=== PATIENT | female | born 1945 | race Caucasian/White ===

== ENCOUNTER → 2020-04-22 13:20 | Outpatient (BNVA) | payer MEDICARE, OTHER, SELFPAY | PROVIDERS: PCP Internal Medicine; Visit Provider Internal Medicine Cardiovascular Disease | DX: I20.8 Other forms of angina pectoris (principal); I50.30 Unspecified diastolic (congestive) heart failure; G62.9 Polyneuropathy, unspecified; Z79.82 Long term (current) use of aspirin; Z79.899 Other long term (current) drug therapy; Z95.0 Presence of cardiac pacemaker; Z95.2 Presence of prosthetic heart valve | CPT/HCPCS: 99212 ==

== ENCOUNTER → 2020-05-04 10:57 | Outpatient (REF) | payer MEDICARE, OTHER, SELFPAY ==
--- NOTE | 2020-05-04 11:02 | CA_ITS ---
Acquisition Time: 2020-05-04 11:25:23 Total Exercise Time: 00:02:55 Test Indications: Chest Pain Medications: ASA BUMETANIDE CETERZINE METOPROLOL POTASSIUM SIMVASTATIN Protocol: ERROL Max HR: 093 BPM 65% of Pred: 143 BPM Max BP: 154/064 mmHG Max Work Load: 4.6 METS Exercise stress ECHO pt unable to go longer then 2 min 55 sec. Pt requested to terminate the test as she was unable to walk any more d/t her legs pain and leg fatique. Pt reported to be SOB, but that was not why she wanted to terminate the test. Images taken at rest and at he end of exercise. Normotensive response to exercise. Test reviewed with Dr. Andrew. Referred By: Rene Morales Overread By: Shira Robles
== END ==
LOC: HO.CARD 10:57
PROVIDERS: Visit Provider Internal Medicine Cardiovascular Disease
DX: I20.8 Other forms of angina pectoris (principal)
CPT/HCPCS: 93350; Q9957

== ENCOUNTER 2020-05-15 14:17 | Outpatient (REF) | payer MEDICARE, OTHER, SELFPAY | END 2020-05-15 14:18 | disposition home or self-care (01) | LOC: HO.LAB 14:17 | PROVIDERS: Visit Provider Hospitalist | DX: Z13.89 Encounter for screening for other disorder (principal) | CPT/HCPCS: U0003 ==

== ENCOUNTER 2020-05-15 14:23 | Outpatient (REF) | payer MEDICARE, OTHER, SELFPAY ==
--- NOTE | 2020-05-15 14:27 | XR_ITS ---
EXAMINATION: XR CHEST CLINICAL INFORMATION: Angina pectoris COMPARISON: Chest x-ray 11/08/2018 TECHNIQUE: 2 views of the chest were obtained. FINDINGS: Pacemaker lead in right atrium and right ventricle. Status post TAVR. Surgical clips over the left side of the upper chest. The heart size is normal. The cardiac and the mediastinal contours are normal. There is no acute abnormality the chest. There are no pleural effusions. There is no pulmonary vascular congestion. No focal consolidation. XR/XR chest 2V IMPRESSION: No acute abnormality of chest.
== END 2020-05-15 14:24 | disposition home or self-care (01) ==
LOC: HO.HMGCX 14:23
PROVIDERS: PCP Internal Medicine; Visit Provider Hospitalist
DX: I20.8 Other forms of angina pectoris (principal)
CPT/HCPCS: 71046; U0003

== ENCOUNTER → 2020-06-10 09:38 | Outpatient (REF) | payer MEDICARE, OTHER, SELFPAY ==
--- NOTE | 2020-06-10 | NM_ITS ---
Lexiscan Myocardial perfusion study Indication: Coronary artery disease, history of LAD stenosis, assess for ischemia Technique: The patient was brought in for a Lexiscan perfusion study on 06/10/2020 and was injected 0.4 mg of Lexiscan intravenously. Within a minute of this injection 25 mCi of sestamibi was given intravenously. Images were obtained using the SPECT gamma camera interlaced with the gating device. Images were obtained in supine position. Resting perfusion study was performed on 06/11/2020. Patient was administered 25 mCi of sestamibi intravenously at rest. Images were then obtained in supine position. Total DLP 78mGy-cm. Images were processed with the software and compared side to side in short axis, horizontal long axis and vertical long axis views. Findings: Raw acquisition was reviewed. The stress perfusion study showed mildly reduced tracer uptake at the apex. This defect is still persisting with CT attenuation correction. The gated study shows normal LV systolic function with calculated LVEF of 75%. LV cavity is normal in size. The gated study shows normal wall thickening and contraction of segments. Resting study shows no significant perfusion abnormality. Gating at rest reveals normal wall motion with ejection fraction at 68%. The findings are consistent with mild apical reversible defect. NM/NM moe perf SPECT rest & str Impression: 1. Myocardial perfusion imaging study shows mild reversible defect at the apex that could be from ischemia. Otherwise normal myocardial perfusion. 2. Gated LVEF is 75% during stress; 68% during rest. 3. Transient ischemic dilatation not present. EKG component of the test reported separately.
--- NOTE | 2020-06-10 09:40 | CA_ITS ---
Acquisition Time: 2020-06-10 09:43:56 Total Exercise Time: 00:02:00 Test Indications: Chest Pain Medications: ASA BUMETANIDE LEVOTHYROXINE METOPROLOL PANTOPRAZOLE CERTRAZINE SIMVASTATIN POTASSIUM Protocol: LEXISCAN Max HR: 067 BPM 46% of Pred: 143 BPM Max BP: 130/064 mmHG Max Work Load: 1.0 METS Pharmacological stress test using Lexiscan while sitting. Pt reports chest thightness and headache. Sx reversed with Aminophyline 75 mg IV. EKG with LBBB with V paced, non-diagnostic for ischemia. Nuclear images to follow. No rmotensive response to test. Test reviewed with Dr. Schmid Patient was feeling lightheaded blood sugar 86. Patient was given Pepsi and crackers. Symptoms improved Referred By: Margaret Rosales Overread By: Shira Robles
[2020-06-10 10:28] LABS: Glucose, Whole Blood 86 mg/dL (60-115)
== END ==
LOC: HO.CARD 09:38
PROVIDERS: PCP Internal Medicine; Visit Provider Nurse Practitioner Family
DX: R06.02 Shortness of breath (principal); I25.10 Atherosclerotic heart disease of native coronary artery without angina pectoris
CPT/HCPCS: 78452; 82947; 93017; A9500; J0280; J2785

== ENCOUNTER 2020-06-16 16:43 | Outpatient (REF) | payer MEDICARE, OTHER, SELFPAY ==
[2020-06-17 12:49] LABS: Influenza A PCR NEGATIVE (Negative); Influenza B PCR NEGATIVE (Negative); Resp Syncy Virus RNA Qual PCR NEGATIVE (Negative); SARS COV2 PCR INHOUSE NEGATIVE (Negative)
== END 2020-06-16 16:44 | disposition home or self-care (01) ==
LOC: HO.LAB 16:43
PROVIDERS: Visit Provider Nurse Practitioner Family
DX: Z20.822 Contact with and (suspected) exposure to COVID-19 (principal)
CPT/HCPCS: 0241U; 36415

== ENCOUNTER 2020-07-03 09:42 | Outpatient (REF) | payer MEDICARE, OTHER, SELFPAY ==
[2020-07-03 11:24] LABS: Hematocrit 42.2 % (37-47); Hemoglobin 13.5 g/dl (12.0-16.0)
[2020-07-03 11:25] LABS: Estimated Average Glucose 131 mg/dL; Hemoglobin A1c % 6.2 %
[2020-07-03 11:54] LABS: Alanine Aminotransferase 20 U/L (0-31); Albumin Level 3.4 g/dL (3.5-5.0); Alkaline Phosphatase 217 U/L (39-117); Anion Gap 14 (12-20); Aspartate Amino Transferase 33 U/L (5-31); Bilirubin Direct 0.2 mg/dL (0.0-0.5); Bilirubin Total 0.7 mg/dL (0.0-1.0); Blood Urea Nitrogen 17 mg/dL (9-16); Calcium 8.5 mg/dL (8.4-10.2); Carbon Dioxide 28 mmol/L (22-29); Chloride 105 mmol/L (96-108); Estimated Glomerular Filt Rate > 60; Glucose Random 128 mg/dL (60-115); Potassium 4.7 mmol/L (3.3-5.1); Sodium 142 mmol/L (135-145); Total Protein 5.9 g/dL (6.5-8.0)
[2020-07-03 12:03] LABS: TSH reflex Free T4 2.53 mIU/mL (0.32-4.0)
[2020-07-03 12:22] LABS: Creatinine Urine 214.59 mg/dL; Microalbum/Creatinine Ratio Ur 6.9 ug/mg cr
[2020-07-04 09:02] LABS: LDL Cholesterol Direct 67 mg/dL (<100)
== END 2020-07-03 09:43 | disposition home or self-care (01) ==
LOC: HO.HMGCLDS 09:42
PROVIDERS: PCP Internal Medicine; Visit Provider Internal Medicine
DX: Z00.01 Encounter for general adult medical examination with abnormal findings (principal); E13.9 Other specified diabetes mellitus without complications; E78.5 Hyperlipidemia, unspecified; E03.9 Hypothyroidism, unspecified
CPT/HCPCS: 36415; 80048; 80076; 82043; 83036; 83721; 84443; 85014; 85018

== ENCOUNTER 2020-07-14 10:28 | Outpatient (REF) | payer MEDICARE, OTHER, SELFPAY ==
--- NOTE | ~2020-07-14 | US_ITS ---
EXAMINATION: US ABDOMEN COMPLETE CLINICAL INFORMATION: Other specified abnormal findings of blood chemistry. COMPARISON: Ultrasound abdomen complete 11/13/2018. CT abdomen and pelvis 06/10/2009. TECHNIQUE: Real-time imaging of the abdominal viscera. FINDINGS: PANCREAS: The pancreas is homogeneous in echotexture with a small anechoic cyst at the junction of head and body measuring 0.8 x 1.0 x 1.2 cm. ABDOMINAL AORTA: There is mild ectasia of the distal abdominal aorta measuring 2.8 cm in AP. INFERIOR VENA CAVA: Visualized portions are normal. LIVER: There is mild ascites in the perihepatic space. The liver contour is normal. Parenchymal echogenicity is normal. No focal hepatic lesion. There is no intrahepatic biliary duct dilatation seen. GALLBLADDER: Surgically absent. COMMON BILE DUCT: Normal in caliber measuring 1.0 cm in diameter. RIGHT KIDNEY: Normal. No hydronephrosis. No renal calculi or focal parenchymal lesions. The kidney measures 9.6 cm in maximum dimension. LEFT KIDNEY: There is an anechoic cyst in the midpole measuring 1.0 x 0.8 x 0.8 cm. No hydronephrosis or focal parenchymal lesions. The kidney measures 9.8 cm in maximum dimension. SPLEEN: A small echogenic focus is seen in the mid spleen measuring 0.7 x 0.7 x 0.8 cm likely small hemangioma. The spleen measures 11.0 cm in maximum dimension. Trace free fluid is seen in the perisplenic space. FREE FLUID: Minimal free fluid seen. US/US abdomen complete IMPRESSION: Midpole left kidney small cysts. Trace free fluid bilaterally. Suspect small hemangioma in the spleen. Mild ectasia of the distal abdominal aorta measuring 2.8 cm in AP view. Small cyst at the junction of head and body of pancreas.
--- NOTE | ~2020-07-14 | MM_ITS ---
EXAMINATION: MM SCREENING DIGITAL BREAST TOMOSYNTHESIS, BILATERAL CLINICAL INFORMATION: Screening. Asymptomatic. The lifetime risk of breast cancer based on the Tyrer-Cuzick Model is 2%. COMPARISON: Mammography: 01/23/2019, 11/22/2017, 08/01/2014 TECHNIQUE: Digital breast tomosynthesis is performed in both the craniocaudal and mediolateral oblique views along with computer-aided detection (CAD). Synthesized 2D images are generated from the tomosynthesis. FINDINGS: There are scattered areas of fibroglandular density (ACR BI-RADS breast composition Category b). There are no significant masses, abnormal calcifications, or other abnormalities. Parenchymal pattern similar to prior studies. Again, there is intramammary node right breast upper outer quadrant and scattered bilateral vascular and ductal secretory calcifications. No significant changes. MM/MM tomosynthesis screening BI IMPRESSION: No mammographic evidence of malignancy. ASSESSMENT: BI-RADS 2: Benign RECOMMENDATION: Routine annual mammography screening. This patient's information was entered into a reminder system with a target due date for their next mammogram.
== END 2020-07-14 10:29 | disposition home or self-care (01) ==
LOC: HO.HMGCX 10:28
PROVIDERS: PCP Internal Medicine; Visit Provider Internal Medicine
DX: R94.5 Abnormal results of liver function studies (principal); Z12.31 Encounter for screening mammogram for malignant neoplasm of breast
CPT/HCPCS: 76700; 77063; 77067

== ENCOUNTER → 2020-07-15 12:52 | Outpatient (BNVA) | payer MEDICARE, OTHER, SELFPAY | PROVIDERS: PCP Internal Medicine; Visit Provider Internal Medicine Cardiovascular Disease | DX: I50.32 Chronic diastolic (congestive) heart failure (principal); I20.8 Other forms of angina pectoris; R94.39 Abnormal result of other cardiovascular function study | CPT/HCPCS: 99212 ==

== ENCOUNTER 2020-07-23 08:05 | Outpatient (REF) | payer MEDICARE, OTHER, SELFPAY ==
--- NOTE | ~2020-07-23 | XR_ITS ---
EXAMINATION: CR X-RAY KNEES BILATERAL CLINICAL INFORMATION: Knee pain. COMPARISON: None TECHNIQUE: 3 views each of the bilateral knees were obtained with standing AP views. FINDINGS: Right: Mild medial femoral-tibial joint space narrowing is seen with minimal chondrocalcinosis. There is no acute fracture or dislocation. Trace suprapatellar joint fluid is seen. Moderate prepatellar soft tissue swelling is seen. Left: Mild femoral-tibial joint space narrowing is seen with mild chondrocalcinosis. There is no acute fracture or dislocation. Trace suprapatellar joint fluid is seen. There is moderate prepatellar soft tissue swelling. XR/XR knee LT 2V IMPRESSION: Mild femoral-tibial degenerative joint changes as detailed above. Possible trace supra patellar joint fluid bilaterally. Moderate prepatellar soft tissue swelling. No overt acute abnormality.
--- NOTE | ~2020-07-23 | XR_ITS ---
EXAMINATION: XR PELVIS CLINICAL INFORMATION: Hip pain COMPARISON: Bilateral hip radiographs 06/14/2018 TECHNIQUE: AP view of the pelvis. FINDINGS: There is no fracture or dislocation or destructive process. Degenerative changes are present lower lumbar spine. SI joints and pubis show no diastases. There are surgical clips inferior pelvis. There is chronic benign coarse calcification in region of bladder outlet. Again, some calcific tendinosis present in region of right hamstring. There are bilateral vascular calcifications. Left hip shows increased axial narrowing with mild subchondral sclerosis and osteophyte. The right hip has lesser medial narrowing also slightly increased since 2019. No erosive changes. There is minor bilateral greater trochanteric spurring. XR/XR pelvis 1-2V IMPRESSION: 1. 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 2. Stable calcification in region of proximal right hamstring. 3. Probable degenerative changes lower lumbar spine.
--- NOTE | ~2020-07-23 | XR_ITS ---
EXAMINATION: CR X-RAY KNEES BILATERAL CLINICAL INFORMATION: Knee pain. COMPARISON: None TECHNIQUE: 3 views each of the bilateral knees were obtained with standing AP views. FINDINGS: Right: Mild medial femoral-tibial joint space narrowing is seen with minimal chondrocalcinosis. There is no acute fracture or dislocation. Trace suprapatellar joint fluid is seen. Moderate prepatellar soft tissue swelling is seen. Left: Mild femoral-tibial joint space narrowing is seen with mild chondrocalcinosis. There is no acute fracture or dislocation. Trace suprapatellar joint fluid is seen. There is moderate prepatellar soft tissue swelling. XR/XR knee RT 2V IMPRESSION: Mild femoral-tibial degenerative joint changes as detailed above. Possible trace supra patellar joint fluid bilaterally. Moderate prepatellar soft tissue swelling. No overt acute abnormality.
--- NOTE | ~2020-07-23 | XR_ITS ---
EXAMINATION: CR X-RAY KNEES BILATERAL CLINICAL INFORMATION: Knee pain. COMPARISON: None TECHNIQUE: 3 views each of the bilateral knees were obtained with standing AP views. FINDINGS: Right: Mild medial femoral-tibial joint space narrowing is seen with minimal chondrocalcinosis. There is no acute fracture or dislocation. Trace suprapatellar joint fluid is seen. Moderate prepatellar soft tissue swelling is seen. Left: Mild femoral-tibial joint space narrowing is seen with mild chondrocalcinosis. There is no acute fracture or dislocation. Trace suprapatellar joint fluid is seen. There is moderate prepatellar soft tissue swelling. XR/XR knee standing BI IMPRESSION: Mild femoral-tibial degenerative joint changes as detailed above. Possible trace supra patellar joint fluid bilaterally. Moderate prepatellar soft tissue swelling. No overt acute abnormality.
== END 2020-07-23 08:06 | disposition home or self-care (01) ==
LOC: HO.HOSX 08:05
PROVIDERS: Visit Provider Orthopaedic Surgery
DX: M17.0 Bilateral primary osteoarthritis of knee (principal); M16.12 Unilateral primary osteoarthritis, left hip
CPT/HCPCS: 72170; 73560; 73565; 99202

== ENCOUNTER → 2020-08-12 10:58 | Outpatient (BNVA) | payer MEDICARE, OTHER, SELFPAY | PROVIDERS: PCP Internal Medicine; Visit Provider Nurse Practitioner Family | DX: M54.16 Radiculopathy, lumbar region (principal); M25.552 Pain in left hip; M25.551 Pain in right hip; G90.523 Complex regional pain syndrome I of lower limb, bilateral; Z79.899 Other long term (current) drug therapy | CPT/HCPCS: 99202 ==

== ENCOUNTER 2020-09-03 12:21 | Outpatient (REF) | payer MEDICARE, OTHER, SELFPAY ==
--- NOTE | ~2020-09-03 | MR_ITS ---
EXAMINATION: MR LUMBAR SPINE WITHOUT CONTRAST CLINICAL INFORMATION: 75-year-old with radiculopathy, lumbar region. History of surgery in the remote past. COMPARISON: 06/25/2018 MRI TECHNIQUE: MRI of the lumbar spine was obtained using routine sequences without contrast. FINDINGS: Coronal Alignment:?Normal. Sagittal Alignment:?Normal. Lumbosacral Junction:?Normal. Vertebral Bodies: Normal height. Bone Marrow: No suspicious marrow replacing process or bone marrow edema. Conus Medullaris:?Terminates at L1.?Morphology and signal is normal. Intradural Nerve Roots: Within normal limits, with fibrofatty proliferation in the filum terminale, stable in appearance. L5-S1: Disc space height is well maintained, stable in appearance with disc desiccation, with right paravertebral spondylosis unchanged. Mild diffuse disc bulging is again noted with right paramedian to lateral annular fissuring similar to the previous exam. [id number] facet hypertrophic degenerative change on the right is unchanged, with no definite neural impingement on current study. No significant canal or neural foraminal stenosis. L4-L5: Disc space height is stable from previous exam with disc desiccation consistent with disc degenerative change. There is diffuse disc bulging again noted with mild flattening of the dural sac, stable in appearance. Right hemilaminectomy defect at this level again noted with moderate bilateral facet arthropathy, right more than left, unchanged in appearance, with mild encroachment on the traversing right L5 nerve root, stable in appearance. There is also crowding of the left subarticular zone, unchanged in appearance. There is mild bilateral neural foraminal stenosis, unchanged in appearance without exiting L4 nerve root impingement. L3-L4: Disc space height is well maintained, stable in appearance with disc desiccation. There is a prominent central Schmorl's node along the inferior endplate of L3 which is progressed from previous exam. Mild spondylosis and minimal disc bulging again noted with slight flattening of the dural sac, with mild ligamentum flavum thickening or infolding and mild bilateral facet arthropathy without significant canal or neural foraminal stenosis. L2-L3: Disc space height is well maintained with disc desiccation, stable in appearance. Mild anterior marginal spondylosis is noted with minimal disc bulging asymmetric to the right and minor facet arthrosis with no significant canal or neural foraminal stenosis, unchanged in appearance. Small bilateral perineural cysts are noted at this level. L1-L2: Disc space height is well maintained, stable in appearance with disc desiccation and spondylosis, unchanged. Small central disc herniation noted superimposed on minimal disc bulging, stable in appearance with slight flattening of the central dural sac, unchanged. No significant canal or neural foraminal stenosis. Small perineural cysts on the right at T12-L1 and T11-T12 and on the left at T11-T12, unchanged in appearance. Paraspinal/Retroperitoneal: The paravertebral soft tissues are remarkable for moderate generalized diffuse muscle volume loss. On the current study, note is made of diffuse irregular thickening of the colonic wall and rectum, which are new findings suggesting the possibility of colitis. Recommend further assessment with CT of the abdomen and pelvis without and with contrast. MR/MR lumbar spine wo con IMPRESSION: 1. Multilevel mild degrees of disc bulging, as described above, largely stable in appearance with postoperative changes on the right at L4-L5, stable in appearance with multilevel bilateral facet arthropathy, unchanged. There is crowding of the subarticular zones at L4-L5 bilaterally, right more than left, unchanged in appearance. 2. Mild bilateral neural foraminal stenosis at L4-5 is stable without neural impingement. 3. Diffuse irregular thickening of the colonic wall and rectosigmoid is noted on the current study as an incidental finding. Recommend CT of the abdomen and pelvis with oral and IV contrast to further assess this. The [facility] staff will call to confirm receipt of this report with acknowledgment of the findings and recommendations.
== END 2020-09-03 12:22 | disposition home or self-care (01) ==
LOC: HO.MRI 12:21
PROVIDERS: Visit Provider Anesthesiology
DX: M54.16 Radiculopathy, lumbar region (principal)
CPT/HCPCS: 72148

== ENCOUNTER → 2020-09-11 15:30 | Outpatient (BNVA) | payer MEDICARE, OTHER, SELFPAY | PROVIDERS: PCP Internal Medicine; Visit Provider Nurse Practitioner Family | DX: M54.16 Radiculopathy, lumbar region (principal); G90.523 Complex regional pain syndrome I of lower limb, bilateral; M25.551 Pain in right hip; M25.552 Pain in left hip | CPT/HCPCS: 99212 ==

== ENCOUNTER → 2020-09-14 13:02 | Outpatient (BNVA) | payer MEDICARE, OTHER, SELFPAY | PROVIDERS: PCP Internal Medicine; Visit Provider Internal Medicine Cardiovascular Disease | DX: I50.32 Chronic diastolic (congestive) heart failure (principal); I20.8 Other forms of angina pectoris; R94.39 Abnormal result of other cardiovascular function study; Z95.0 Presence of cardiac pacemaker | CPT/HCPCS: 99212 ==

== ENCOUNTER → 2020-10-08 12:44 | Outpatient (BNVA) | payer MEDICARE, OTHER, SELFPAY | PROVIDERS: PCP Internal Medicine; Referring Provider Internal Medicine; Visit Provider Internal Medicine Cardiovascular Disease | DX: I50.32 Chronic diastolic (congestive) heart failure (principal); R94.39 Abnormal result of other cardiovascular function study | CPT/HCPCS: 99212 ==

== ENCOUNTER 2020-10-15 16:09 | Outpatient (REF) | payer MEDICARE, OTHER, SELFPAY | END 2020-10-15 16:10 | disposition home or self-care (01) | LOC: HO.LAB 16:09 | PROVIDERS: PCP Internal Medicine; Visit Provider Otolaryngology | DX: J30.89 Other allergic rhinitis (principal) | CPT/HCPCS: 36415; 82785; 86003 ==

== ENCOUNTER 2020-11-20 08:19 | Outpatient (REF) | payer MEDICARE, OTHER, SELFPAY ==
[2020-11-20 09:19] LABS: Hematocrit 38.4 % (37-47); Hemoglobin 12.4 g/dl (12.0-16.0)
[2020-11-20 09:30] LABS: Estimated Average Glucose 146 mg/dL; Hemoglobin A1c % 6.7 %
[2020-11-20 09:58] LABS: Alanine Aminotransferase 31 U/L (0-31); Albumin Level 2.9 g/dL (3.5-5.0); Alkaline Phosphatase 222 U/L (39-117); Anion Gap 9 (12-20); Aspartate Amino Transferase 43 U/L (5-31); Bilirubin Total 0.3 mg/dL (0.0-1.0); Blood Urea Nitrogen 15 mg/dL (9-16); Calcium 8.2 mg/dL (8.4-10.2); Carbon Dioxide 29 mmol/L (22-29); Chloride 110 mmol/L (96-108); Cholesterol 105 mg/dL; Estimated Glomerular Filt Rate > 60; Glucose Fasting 86 mg/dL (60-99); HDL Cholesterol 33 mg/dL; LDL Cholesterol Calculated 53 mg/dl; Potassium 4.3 mmol/L (3.3-5.1); Sodium 144 mmol/L (135-145); Total Protein 4.8 g/dL (6.5-8.0); Triglycerides 99 mg/dL
[2020-11-20 10:02] LABS: TSH reflex Free T4 1.83 uIU/mL (0.32-4.0)
== END 2020-11-20 08:20 | disposition home or self-care (01) ==
LOC: HO.LAB 08:19
PROVIDERS: Internal Medicine; PCP Physician Assistant; Visit Provider Physician Assistant
DX: E13.9 Other specified diabetes mellitus without complications (principal); E03.9 Hypothyroidism, unspecified; E78.5 Hyperlipidemia, unspecified; R79.89 Other specified abnormal findings of blood chemistry; Z79.4 Long term (current) use of insulin
CPT/HCPCS: 36415; 80053; 80061; 83036; 84443; 85014; 85018

== ENCOUNTER 2020-12-08 12:45 | Outpatient (REF) | payer MEDICARE, OTHER, SELFPAY ==
--- NOTE | ~2020-12-08 | US_ITS ---
EXAMINATION: RIGHT and LEFT LOWER EXTREMITY VENOUS ULTRASOUND (Reflux Exam) CLINICAL INDICATION: leg pain and varicose veins. COMPARISON: None. TECHNIQUE: Color flow triplex imaging and compression Doppler was performed to evaluate both the deep and the superficial systems bilaterally. To evaluate the superficial system, the examination was performed in the upright position. Color-flow Doppler ultrasound and compression ultrasound were utilized. In addition, maneuvers were utilized to demonstrate reflux. FINDINGS: 1. DEEP VENOUS ULTRASOUND OF THE RIGHT LOWER EXTREMITY: Respiratory variation, normal compression and augmented flow are noted in the right common femoral vein as well as the right popliteal vein and there is no evidence of deep venous thrombosis at these locations. There is no evidence of reflux in the deep system in either the common femoral vein or the popliteal vein. There is no evidence of a Melgar's cyst. 2. SUPERFICIAL ULTRASOUND WITH DOPPLER OF RIGHT LOWER EXTREMITY: The right great saphenous vein at the saphenofemoral junction measures 7 mm, at the mid thigh 3 mm, [id number] 2 mm, [id number] 3 mm, at mid calf 2 mm and at the ankle measures 1 mm. There is no reflux demonstrated in the right great saphenous vein. The right small saphenous vein measures 2 mm and shows no reflux. 3. DEEP VENOUS ULTRASOUND OF THE LEFT LOWER EXTREMITY: Respiratory variation, normal compression and augmented flow are noted in the left common femoral vein as well as the left popliteal vein and there is no evidence of deep venous thrombosis at these locations. There is no evidence of reflux in the deep system in either the common femoral vein or the popliteal vein. . There is no evidence of a Melgar's cyst. 4. SUPERFICIAL ULTRASOUND WITH DOPPLER OF LEFT LOWER EXTREMITY: Left great saphenous vein at the saphenofemoral junction measures 7 mm, at the mid thigh to mm, [id number] 2 mm, [id number] 2 mm, at mid calf 1 mm and at the ankle measures 2 mm. There is 2.6 seconds reflux in the left greater saphenous vein in the proximal thigh. The left small saphenous vein measures 2 mm and shows no reflux. US/US venous duplex LE BI IMPRESSION: 1. No evidence of reflux or thrombus in the common femoral veins or popliteal veins bilaterally. 2. Left greater saphenous vein reflux measuring 2.6 cm in the proximal thigh. No right greater saphenous vein reflux.
== END 2020-12-08 12:46 | disposition home or self-care (01) ==
LOC: HO.US 12:45
PROVIDERS: Visit Provider Physician Assistant
DX: I87.2 Venous insufficiency (chronic) (peripheral) (principal); R60.0 Localized edema
CPT/HCPCS: 93970

== ENCOUNTER → 2020-12-17 13:01 | Outpatient (BNVA) | payer MEDICARE, OTHER, SELFPAY | PROVIDERS: PCP Physician Assistant; Visit Provider Surgery Vascular Surgery | DX: R60.0 Localized edema (principal) | CPT/HCPCS: 99212 ==

== ENCOUNTER 2021-02-12 09:36 | Outpatient (REF) | payer MEDICARE, OTHER, SELFPAY ==
[2021-02-12 10:54] LABS: Estimated Average Glucose 114 mg/dL; Hemoglobin A1c % 5.6 %
[2021-02-12 11:15] LABS: TSH reflex Free T4 5.65 uIU/mL (0.32-4.0)
[2021-02-12 11:18] LABS: Alanine Aminotransferase 20 U/L (0-31); Albumin Level 2.9 g/dL (3.5-5.0); Alkaline Phosphatase 402 U/L (39-117); Anion Gap 12 (12-20); Aspartate Amino Transferase 40 U/L (5-31); Blood Urea Nitrogen 15 mg/dL (9-16); Calcium 8.6 mg/dL (8.4-10.2); Carbon Dioxide 26 mmol/L (22-29); Chloride 103 mmol/L (96-108); Cholesterol 130 mg/dL; Estimated Glomerular Filt Rate 55; Glucose Fasting 156 mg/dL (60-99); HDL Cholesterol 36 mg/dL; LDL Cholesterol Calculated 61 mg/dl; Potassium 4.9 mmol/L (3.3-5.1); Sodium 136 mmol/L (135-145); Total Protein 5.5 g/dL (6.5-8.0); Triglycerides 166 mg/dL
[2021-02-12 12:04] LABS: Free T4 (Free Thyroxine) 1.37 ng/dL (0.71-1.85)
== END 2021-02-12 09:37 | disposition home or self-care (01) ==
LOC: HO.LAB 09:36
PROVIDERS: PCP Physician Assistant; Visit Provider Physician Assistant
DX: E13.9 Other specified diabetes mellitus without complications (principal); E03.9 Hypothyroidism, unspecified; E78.2 Mixed hyperlipidemia
CPT/HCPCS: 36415; 80053; 80061; 83036; 84439; 84443

== ENCOUNTER 2021-03-02 11:34 | Outpatient (REF) | payer MEDICARE, OTHER, SELFPAY ==
[2021-03-02 12:52] LABS: Leukocytes Stool Qualitative NEGATIVE (NEGATIVE)
== END 2021-03-02 11:35 | disposition home or self-care (01) ==
LOC: HO.LNP 11:34
PROVIDERS: Visit Provider Physician Assistant
DX: K52.9 Noninfective gastroenteritis and colitis, unspecified (principal); R79.89 Other specified abnormal findings of blood chemistry
CPT/HCPCS: 89055

== ENCOUNTER 2021-03-03 15:17 | Outpatient (REF) | payer MEDICARE, OTHER, SELFPAY ==
[2021-03-03 15:26] LABS: MANUAL DIFF FLAG NO
[2021-03-03 15:59] LABS: Basophils Percent Auto 0.2 % (0-2); Hematocrit 43.7 % (37-47); Hemoglobin 14.6 g/dl (12.0-16.0); Imm Gran Abs Auto 0.02 X10*3/uL (0.00-0.03); Imm Gran Pct Auto 0.4 % (0.0-0.4); Lymphocytes Absolute Auto 0.8 X10*3/uL (1.2-4.9); Lymphocytes Percent Auto 14.6 % (20-40); Mean Corpuscular HGB Conc 33.4 g/dl (31.0-35.0); Mean Corpuscular Hemoglobin 29.9 pg (27.0-33.0); Mean Corpuscular Volume 89.5 fL (80-98); Mean Platelet Volume 11.1 fL (9.4-12.3); Monocytes Absolute Auto 0.4 X10*3/uL (0.1-1.2); Monocytes Percent Auto 6.9 % (2-11); Neutrophils Absolute Auto 4.3 X10*3/uL (2.0-8.3); Neutrophils Percent Auto 77.9 % (45-73); Platelet Count 252 X10*3/uL (160-400); Red Blood Count 4.88 X10*6/uL (4.20-5.50); White Blood Count 5.5 X10*3/uL (4.8-10.8)
[2021-03-03 16:05] LABS: Prothrombin Time 11.2 SEC (9.9-13.0)
[2021-03-03 16:29] LABS: Alanine Aminotransferase 29 U/L (0-31); Albumin Level 2.5 g/dL (3.5-5.0); Alkaline Phosphatase 410 U/L (39-117); Anion Gap 16 (12-20); Aspartate Amino Transferase 68 U/L (5-31); Blood Urea Nitrogen 23 mg/dL (9-16); Calcium 8.1 mg/dL (8.4-10.2); Carbon Dioxide 19 mmol/L (22-29); Chloride 100 mmol/L (96-108); Estimated Glomerular Filt Rate 41; Glucose Random 128 mg/dL (60-115); Potassium 4.8 mmol/L (3.3-5.1); Sodium 130 mmol/L (135-145); Total Protein 5.1 g/dL (6.5-8.0)
== END 2021-03-03 15:18 | disposition home or self-care (01) ==
LOC: HO.LAB 15:17
PROVIDERS: Visit Provider Physician Assistant
DX: K52.9 Noninfective gastroenteritis and colitis, unspecified (principal); R94.5 Abnormal results of liver function studies
CPT/HCPCS: 36415; 80053; 85025; 85610